=== PATIENT | female | born 1990 | race Caucasian/White ===

== ENCOUNTER 2019-08-27 12:10 | Outpatient (CLI) | payer OTHER ==
--- NOTE | 2019-08-27 13:03 | RAD ---
ABDOMEN 1 VIEW: HISTORY: Left-sided flank pain. FINDINGS/IMPRESSION: The bowel gas pattern is unremarkable. There is fecal material in the colon. No suspicious calcific ations are identified. POS: [facility]
== END 2019-08-27 12:11 | disposition home or self-care (01) ==
LOC: BICRAD 12:10
PROVIDERS: ATTEND Family Medicine
DX: R10.12 Left upper quadrant pain (principal)
CPT/HCPCS: 36415; 74018; 80053; 80061; 81001; 85025